=== PATIENT | male | born 1945 | race Caucasian/White ===

== ENCOUNTER 2018-05-30 00:49 | Inpatient (IN) | payer MEDICARE, OTHER ==
[2018-05-30] VITALS (12 sets, daily range): BP systolic 109–152; BP diastolic 61–108
[~2018-05-30] VITALS: Ht 177.8 cm; Wt 79.4 kg
[~2018-05-30 00:49] MED LIST: AMLO-113 PO; AMLO2.5T76 PO; ATOR20TA22 PO; CANA300T PO; CITA-137 PO; CITA-145 PO; GLIM4TAB50; GLIM4TAB50 PO; HYDR-2966 PO; HYDR-653 PO; HYDR12.556 PO; SILD100T59 PO; SITA1TAB17 PO; TRAM-420 PO; VALA500T66 PO
[2018-05-30] MEDS: NORMOSOL R SOLN(*) 1000 ML BAG 1,000 ML IV PRN ×2 (05:36→10:38)
[2018-05-30] MEDS: FAMOTIDINE 20 MG TAB PO ONE ×2 (05:36→10:38)
[2018-05-30] MEDS: LIDOCAINE/SOD BICARB 8.4% SYR ID ONE ×2 (05:37→10:38)
[2018-05-30] MEDS: ACETAMINOPHEN 500 MG TAB PO ONE ×2 (05:37→10:38)
[2018-05-30] MEDS ORDERED: DEXAMETHASONE SOD PHOS 10MG/ML ONE (06:20)
[2018-05-30] MEDS ORDERED: PROPOFOL(*)1000 MG/100 ML VIAL 100 ML ONE (06:26)
[2018-05-30] MEDS ORDERED: METOCLOPRAMIDE 10 MG/2 ML SDV ONE (10:40)
[2018-05-30] MEDS ORDERED: PROPOFOL EMUL(*) 10MG/ML 20 ML 20 ML ONE ×2 (10:40→14:37)
[2018-05-30] MEDS ORDERED: ONDANSETRON 4 MG/2 ML VIAL ONE (10:40)
[2018-05-30] MEDS ORDERED: LIDOCAINE MPF 1% 5 ML VIAL ONE (10:40)
[2018-05-30] MEDS ORDERED: fentaNYL CITR 250 MCG/5 ML AMP ONE (10:44)
[2018-05-30] MEDS ORDERED: ceFAZolin(*) 2GM/D5W 50ML 50 ML IVPB ONE (11:30)
[2018-05-30] MEDS ORDERED: MIDAZOLAM 2 MG/2 ML VIAL IVP PRN (11:30)
[2018-05-30] MEDS ORDERED: PREGABALIN 75 MG CAPSULE PO ONE (11:30)
[2018-05-30] MEDS ORDERED: ROPIVACAINE 0.2% 20 ML VIAL ONE (12:46)
[2018-05-30] MEDS ORDERED: THROMBIN (BOVINE) 20,000 UNIT VIAL ONE (12:46)
--- NOTE | 2018-05-30 15:55 | RADIOLOGY IMAGING REPORT ---
FACILITY: [facility] PATIENT NAME: Evelio Coy : 1945 MR: [id number] V: [id number] EXAM DATE: ORDERING PHYSICIAN: SELAM GIRON TECHNOLOGIST: Location: [facility] [place] Patient: Evelio Coy : 1945 Visit/Account:[id number] Date of Sevice: 05/30/2018 Technique: LUMBAR SPINE 1 VIEW HISTORY: L4-L5 DISC HERNIATION/FUSION Comparison studies: Lumbar spine radiographs June 18, 2014 FINDINGS: Multiple operative fluoroscopic images were obtained of the lumbar spine. Surgical instrum entation is seen posterior to L4-L5. Posterior spinal fusion hardware is then noted at L4-L5. Degen erative changes are visualized within the lumbar spine. Fluoroscopy time: Not provided IMPRESSION: 1. Intraoperative fluoroscopic radiographs as described above. Please see operative report for comp lete details. Report Dictated By: Lefty Salazar DO at 05/30/2018 3:49 PM Report E-Signed By: Lefty Salazar DO at 05/30/2018 3:50 PM WSN:[email or web address]
[2018-05-30] MEDS ORDERED: SUGAMMADEX SOD 200 MG/2 ML SDV ONE (16:15)
[2018-05-30] MEDS ORDERED: ROCURONIUM BROM 10 MG/ML 5 ML ONE (16:15)
[2018-05-30] MEDS ORDERED: fentaNYL CITR 100 MCG/2 ML AMP ONE ×2 (16:25→16:45)
[2018-05-30] MEDS ORDERED: DIAZEPAM 5 MG TAB PO PRN (16:40)
[2018-05-30] MEDS ORDERED: HYDROmorphone HCL 2 MG/ML SDV IVP PRN (16:40)
[2018-05-30] MEDS ORDERED: ONDANSETRON 4 MG/2 ML VIAL IVP PRN (16:40)
[2018-05-30] MEDS ORDERED: BENZOCAINE/MENTHOL 1 EACH LOZG PO PRN (16:40)
[2018-05-30] MEDS ORDERED: ACETAMINOPHEN(*)1000 MG/100 ML 100 ML IVPB PRN (16:40)
[2018-05-30] MEDS ORDERED: oxyCODONE HCL 5 MG CAP PO PRN (16:40)
[2018-05-30] MEDS ORDERED: BISACODYL 10 MG SUPP PR PRN (16:40)
[2018-05-30] MEDS ORDERED: MAGNESIUM HYDROXIDE* 30ML UDCP PO PRN (16:40)
[2018-05-30] MEDS ORDERED: LR(*) 1000 ML BAG 1,000 ML IV PRN (16:40)
[2018-05-30] MEDS ORDERED: FLUSH 10 ML SYR IVP PRN (16:40)
[2018-05-30] MEDS ORDERED: ACETAMINOPHEN 500 MG TAB PO PRN (16:40)
[2018-05-30] MEDS ORDERED: diphenhydrAMINE 25 MG CAP PO PRN (16:40)
[2018-05-30] MEDS ORDERED: HYDROmorphone HCL 2 MG/ML SDV ONE (17:06)
--- NOTE | 2018-05-30 19:31 | Hospitalist Progress Note ---
Subjective Progress Notes Subjective Patient seen post-operatively. Reviewed PMHx (HTN, type 2 DM, MAINOR) and medications. At present he complains of pain in surgical site. No CP/SOB/N/V. Physical Exam Vital Signs Date Time Temp Pulse Resp B/P (MAP) Pulse Ox O2 Delivery O2 Flow Rate FiO2 05/30/18 18:45 82 138/79 (98) 97 Nasal Cannula 2.0 05/30/18 18:30 20 05/30/18 18:05 98.2 General Appearance: Other (somewhat somnolent, but awakens and answers questions) Cardiovascular: Regular Rate and Rhythm Respiratory: Clear to Auscultation (poor effort) Assessment and Plan Problems: (1) HTN (hypertension) Status: Chronic Assessment & Plan: Will monitor BPs and resume his amlodipine, HCTZ as needed. (2) Type 2 diabetes mellitus Status: Chronic Assessment & Plan: Will continue his usual Invokana, Janumet, glimepiride. Place on ADA diet. Use SSI as needed. (3) MAINOR on CPAP Status: Chronic Assessment & Plan: Continue CPAP. JOSE ALEJANDRO JEWELL MD May 30, 2018 19:31
[2018-05-30] MEDS: APAP/HYDROCODONE 325/5 TAB PO PRN (19:56)
[2018-05-30] MEDS: GLIMEPIRIDE 2 MG TAB PO SCH (21:21)
[2018-05-30] MEDS: METFORMIN PO SCH (21:21)
[2018-05-30] MEDS: DOCUSATE SODIUM 100 MG CAP PO SCH (21:21)
[2018-05-30] MEDS: SITAGLIPTIN PO SCH (21:21)
[2018-05-30] MEDS: ceFAZolin(*) 2GM/D5W 50ML 50 ML IVPB SCH (21:22)
[2018-05-30] MEDS: INSULIN HUM LISPRO 100 UN/ML 3 ML VIAL SUBQ PRN (21:22)
[2018-05-31] VITALS: BP 109/67
[2018-05-31 01:00] VITALS: BP 109/65
[2018-05-31] MEDS: APAP/HYDROCODONE 325/5 TAB PO PRN ×2 (01:27→07:23)
--- NOTE | 2018-05-31 02:59 | OPERATIVE REPORT 1 ---
EVENT DATE: May 30, 2018 SURGEON: Lonny Ingram MD ANESTHESIOLOGIST: Lakhwinder Nix MD ANESTHESIA: General endotracheal anesthesia. HYPOID GEAR GENERATOR: Patrice Brown PA-C PREOPERATIVE DIAGNOSIS L4-L5 spinal stenosis with L4-L5 spondylolisthesis. POSTOPERATIVE DIAGNOSIS L4-L5 spinal stenosis with L4-L5 spondylolisthesis. PROCEDURE PERFORMED L4-L5 laminectomy and L4-L5 posterolateral instrumented fusion. INTRAVENOUS FLUIDS 1700 mL. ESTIMATED BLOOD LOSS 120 mL. IMPLANTS USED 6.5 mm x 45 mm pedicle screws from [employer] x3; 6.5 mm x 40 mm pedicle screw from [employer] x1; 5.5 mm x 45 mm connecting rods from [employer] x2, and locking caps from [employer] x4. DRAINS None. SPECIMENS None. COMPLICATIONS None. DISPOSITION Postanesthesia care unit. INDICATIONS FOR SURGERY Mr. Coy is a 73-year-old gentleman with a long history of back pain and severe radiating left posterior buttock, posterior thigh, posteromedial calf and medial foot numbness on the left. He failed physical therapy, medications, activity modifications, et cetera. Physical examination revealed normal strength but subjectively diminished sensation in sural and superficial peroneal nerve distributions on the left. Deep tendon reflexes were 1+ at bilateral patellar tendons and absent at bilateral Achilles tendons. Imaging studies showed a grade 1 spondylolisthesis at L4-L5 and multilevel degenerative disc disease with left greater than right lateral recess narrowing at the L4-L5 level and moderate to severe bilateral neural foraminal narrowing at that level as well. Secondary to ongoing symptoms and failure of nonsurgical care, Mr. Coy was offered and elected to undergo L4-L5 laminectomy and posterolateral instrumented fusion. Prior to surgery, I explained in detail to the patient the possible risks of surgery. These risks include bleeding, infection, damage to surrounding structures, spinal fluid leak, meningitis, nerve root injury, persistent and/or worsening pain, failure of instrumentation, need for further surgery, , blindness, sexual dysfunction, autonomic nervous system dysfunction, and other unforeseen medical and surgical complications. An understanding that in general, spinal surgery is more predictive in improving extremity discomfort than axial spine pain was stressed. DESCRIPTION OF PROCEDURE On the day of surgery, the patient was met in the preoperative hold area and all questions were answered. The operative site was identified and marked by myself. The patient was brought in good condition to the operating room, and after succumbing to anesthesia, he was positioned in the prone position on a Alex table. All bony protuberances and soft tissues were well padded in the standard fashion. Care was taken to maintain appropriate perfusion pressures during anesthesia. Preoperative antibiotics were administered according to the appropriate timing schedule. At the conclusion of the procedure, the sponge and needle counts were correct x2. Final time-out was undertaken by members of the operating team to confirm correct patient, correct levels, and correct surgery. The patient was then prepped and draped in the standard sterile orthopedic fashion. A vertical incision was made over the intended spinal levels, and sharp dissection was carried out down to the posterior elements. Soft tissues were elevated off the posterior elements in a subperiosteal manner, and a lateral radiograph was obtained to confirm correct spinal levels. Soft tissues were further elevated from the pars interarticularis and the transverse processes of the L4 and L5 vertebrae bilaterally. The lateral gutters were then packed with thrombin- soaked sponges. Attention was then turned to the laminectomy portion of the procedure. The spinous process of L4 as well as the inferior aspect of the spinous process of L3 and superior aspect of the spinous process of L5 were removed with a Leksell rongeur. The lamina was thinned down the midline with a Leksell rongeur and a high-speed bur. The canal was entered by undermining the superior insertion of the ligamentum flavum from the inferior aspect of the L4 lamina. A [place] elevator was used to separate dural adhesions from surrounding bone and soft tissue prior to the use of the Kerrison punch. A #4 Kerrison punch was then used to perform midline decompression. Bilateral lateral recess decompressions were performed also with a #4 and #4 Kerrison. At the conclusion of the decompression, the [place] elevator was passed along the lateral recesses to ensure no ongoing pressure of the traversing roots at L4-L5 and also at the foramina to ensure no foraminal compression. It was at this point that we recognized that the lamina on the left side was very loose. This included the inferior articular process of L4. Further dissection revealed a unilateral pars defect there that was not previously recognized at time of initial evaluation. We felt that this was explained the somewhat rotatory abnormality that we noted there at L4-L5, and also likely explained the slight anterolisthesis at that level. At this point we turned our attention to placing the pedicle screws. Starting points for pedicle screws were identified at approximately the intersection of the pars interarticularis, the midpoint of the transverse process, and the lateral aspect of the superior articular process/facet joint. A 5 mm high-speed bur was used to decorticate the overlying bone, and a Lenke-type probe was advanced against resistance through the isthmus of the pedicle. A ball-tip feeler was used to probe the screw tract superiorly, inferiorly, medially, laterally, and distally to ensure absence of bony breaching. We chose 6.5 mm x 45 mm screws for bilateral pedicles at L4 and the right pedicle at L5. On the left side at L5, a 40 mm screw was selected. Screws were placed in a standard fashion and tested with neurophysiologic monitoring, and all tested about 20 milliamps. Connecting rods of 45 mm were chosen and placed in the tulips. Locking caps were then placed and tightened and then finally tightened. A high- speed bur was used to decorticate the facet joint on the right side and the transverse processes bilaterally. Local bone mixed with demineralized bone matrix was then packed into the lateral recesses. Prior to placement of graft, the wound was irrigated with copious sterile saline solution. Final x-rays were obtained, which showed excellent positioning of the instrumentation. The wound was then closed in layers using interrupted sutures for the deep fascia, inverted interrupted sutures for the subcutaneous tissue, and then a running subcuticular skin stitch. Sponge and needle counts were correct x2. POSTOPERATIVE CARE PLAN Mr. Coy will remain in the hospital until he meets discharge criteria. He will follow up with me in approximately two weeks for wound check and examination. GEREMIAS
[2018-05-31 05:00] VITALS: BP 113/62
[2018-05-31] MEDS: ceFAZolin(*) 2GM/D5W 50ML 50 ML IVPB SCH (05:02)
--- NOTE | 2018-05-31 06:10 | Hospitalist Progress Note ---
Subjective Progress Notes Subjective He reports pain in surgical site, "but I am doing a lot better than I thought I would". Physical Exam Vital Signs Date Time Temp Pulse Resp B/P (MAP) Pulse Ox O2 Delivery O2 Flow Rate FiO2 05/31/18 05:00 99.1 14 113/62 (79) 94 Nasal Cannula 2.0 05/31/18 01:00 70 Intake and Output 05/31/18 06:59 Intake Total 2600 ml Output Total 1490 ml Balance 1110 ml Intake Oral 500 ml IV Total 2100 ml Output Urine Total 1490 ml General Appearance: Alert, Awake Cardiovascular: Regular Rate and Rhythm Respiratory: Clear to Auscultation Item Value Date Time Whole Blood Glucose 335 mg/DL H 05/30/18 2119 Whole Blood Glucose 163 mg/DL H 05/30/18 1610 Whole Blood Glucose 146 mg/DL H 05/30/18 1138 Assessment and Plan Problems: (1) HTN (hypertension) Status: Chronic Assessment & Plan: Monitor BPs and resume his amlodipine, HCTZ as needed. (2) Type 2 diabetes mellitus Status: Chronic Assessment & Plan: Continue his usual Invokana, Janumet, glimepiride, and ADA diet. Use SSI as needed. (3) MAINOR on CPAP Status: Chronic Assessment & Plan: Continue CPAP. Exam Sepsis Risk: No Definite Risk JOSE ALEJANDRO JEWELL MD May 31, 2018 06:10
[2018-05-31 07:04] VITALS: BP 127/80
[2018-05-31] MEDS: INSULIN HUM LISPRO 100 UN/ML 3 ML VIAL SUBQ PRN (07:18)
[2018-05-31] MEDS: METFORMIN PO SCH (08:16)
[2018-05-31] MEDS: SITAGLIPTIN PO SCH (08:16)
[2018-05-31] MEDS: GLIMEPIRIDE 2 MG TAB PO SCH (08:17)
[2018-05-31] MEDS: DOCUSATE SODIUM 100 MG CAP PO SCH (08:18)
[2018-05-31] MEDS ORDERED: CANAGLIFLOZIN 300 MG TABLET PO SCH (09:00)
[2018-05-31] MEDS ORDERED: amLODIPine BESYL(*) 5 MG TAB PO SCH (09:00)
[2018-05-31] MEDS ORDERED: valACYclovir HCL 500 MG TAB PO SCH ×2 (09:00→21:00)
[2018-05-31] MEDS ORDERED: HYDROCHLOROTHIAZIDE 25 MG TAB PO SCH (09:00)
[2018-05-31] MEDS ORDERED: CITALOPRAM HYDROBROM 20 MG TAB PO SCH (09:00)
[2018-05-31] MEDS ORDERED: ATORVASTATIN 10 MG TAB PO SCH (09:00)
[2018-05-31] MEDS ORDERED: HYDR-385 PO (09:16)
[2018-05-31] MEDS ORDERED: DOCU240C84 PO (09:17)
[2018-05-31] MEDS ORDERED: DIA5 PO (09:17)
--- NOTE | 2018-05-31 11:43 | RADIOLOGY IMAGING REPORT ---
FACILITY: PATIENT NAME: Evelio Coy : 1945 MR: [id number] V: [id number] EXAM DATE: ORDERING PHYSICIAN: SELAM GIRON TECHNOLOGIST: Location: [facility] Patient: Evelio Coy : 1945 Visit/Account:[id number] Date of Sevice: 05/31/2018 Exam type: LUMBAR SPINE 2 OR 3 VIEW History: Post-op Comparison: Intraoperative views lumbar spine May 30, 2018. Findings: There are postsurgical changes from posterior lumbar interbody fusion at L4-5. The vertebral bodies appear unchanged in alignment. Spondylotic changes throughout the remainder the lumbar spine again n oted. There are soft tissue gas in the dorsal soft tissues over the lower lumbar region consistent w ith recent surgery. There is a levoconvex scoliosis lumbar spine IMPRESSION: 1. Post surgical changes from posterior lumbar interbody fusion at L4-5 with vertebral bodies remain ing in good anatomic alignment Report Dictated By: Haven Stout MD at 05/31/2018 11:37 AM Report E-Signed By: Haven Stout MD at 05/31/2018 11:39 AM WSN:[email or web address]
== END 2018-05-31 10:20 | disposition home or self-care (01) | DRG 460 ==
LOC: OR 00:49 → MED 18:05
PROVIDERS: ADMIT Orthopaedic Surgery; ATTEND Orthopaedic Surgery
PROC: 01NB0ZZ Release Lumbar Nerve, Open Approach (ICD-10-PCS; 2018-05-30)
PROC: 0SG0071 Fusion of Lumbar Vertebral Joint with Autologous Tissue Substitute, Posterior Approach, Posterior Column, Open Approach (ICD-10-PCS; principal; 2018-05-30 13:12)
DX: M48.061 Spinal stenosis, lumbar region without neurogenic claudication (principal); M43.16 Spondylolisthesis, lumbar region; M51.16 Intervertebral disc disorders with radiculopathy, lumbar region; I10 Essential (primary) hypertension; E11.9 Type 2 diabetes mellitus without complications; G47.33 Obstructive sleep apnea (adult) (pediatric); F32.9 Major depressive disorder, single episode, unspecified; E03.9 Hypothyroidism, unspecified; Z87.891 Personal history of nicotine dependence; Z79.84 Long term (current) use of oral hypoglycemic drugs
CPT/HCPCS: 36415; 36416; 72020; 72100; 82948; 86850; 86900; 86901; 97161; C1713; J0690; J1100; J1170; J2001; J2250; J2405; J2704; J2765; J2795; J3010; J7120

== ENCOUNTER 2018-08-07 12:37 | Emergency (ER) | payer MEDICARE, OTHER ==
[~2018-08-07 12:37] MED LIST changes: +DIA5 PO; +DOCU240C84 PO; +HYDR-385 PO
[2018-08-07] MEDS ORDERED: ONDANSETRON 4 MG/2 ML VIAL IVP ONE (12:55)
[2018-08-07] MEDS ORDERED: ORPHENADRINE 60MG/2ML INJ IVP ONE (12:55)
[2018-08-07] MEDS ORDERED: fentaNYL CITR 100 MCG/2 ML AMP IVP ONE (12:55)
--- NOTE | 2018-08-07 12:56 | ER Report ---
History and Physical Time Seen By MD: 12:49 Hx. of Stated Complaint: RIGHT SHOULDER PAIN HPI/ROS CHIEF COMPLAINT: Right shoulder pain HISTORY OF PRESENT ILLNESS: This is a 73-year-old male presents to the emergency room for right shoulder pain. 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 Patient also states that last 1-2 days he's had increased pain in the right shoulder, he did purchase a cane yesterday, thinking this would help with the pain, it has increased the discomfort. He has taken two hydrocodone in the past several hours with no relief. The medication is for dental pain, he is scheduled to have dental work done tomorrow. No fevers or chills, no n/v. No chest pain or shortness of breath. REVIEW OF SYSTEMS: Respiratory: No cough, no dyspnea. Cardiovascular: No chest pain, no palpitations. Gastrointestinal: No vomiting, no abdominal pain. Musculoskeletal: As above. Allergies: Coded Allergies: No Known Drug Allergies (Unverified , 08/07/18) Home Meds Reported Medications Hydrocodone Bit/Acetaminophen (HYDROCODON-ACETAMINOPHEN 5-325) 1 Each Tablet, 1- 2 EACH PO Q6H PRN for PAIN, #12 TAB 05/31/18 Sildenafil Citrate (VIAGRA) 100 Mg Tablet, 0.5 TAB PO QDAY 05/26/18 Valacyclovir Hcl (VALTREX) 500 Mg Tablet, 500 MG PO DAILY for GENITAL HERPES 05/26/18 Atorvastatin Calcium (LIPITOR) 20 Mg Tablet, 1 TAB PO QDAY, TAB 05/26/18 Sitagliptin Phos/Metformin Hcl (JANUMET 50-1,000 MG TABLET) 1 Each Tablet, 1 EACH PO BID 05/26/18 Canagliflozin (INVOKANA) 300 Mg Tablet, 300 MG PO DAILY 05/26/18 Hydrochlorothiazide (HYDROCHLOROTHIAZIDE) 25 Mg Tablet, 1 TAB PO QDAY, TAB 05/26/18 Glimepiride (GLIMEPIRIDE) 4 Mg Tablet, 4 MG PO BID 05/26/18 Citalopram Hydrobromide (CITALOPRAM HBR) 20 Mg Tablet, 40 MG PO QDAY, #5 TAB 05/26/18 Amlodipine Besylate (AMLODIPINE BESYLATE) 10 Mg Tablet, 1 TAB PO QDAY, TAB 05/26/18 Discontinued Reported Medications Diazepam (VALIUM) 5 Mg Tablet, 5 MG PO Q8H PRN for SPASMS, #15 TAB 05/31/18 Docusate Calcium (SURFAK) 240 Mg Capsule, 240 MG PO DAILY, CAPSULE 05/31/18 Tramadol Hcl (TRAMADOL HCL) 50 Mg Tablet, 50-100 MG PO Q4-6H PRN for PAIN, TAB 05/26/18 Past Medical/Surgical History The patient has a past medical and surgical history of hypertension, hypercholesterolemia, laminectomy, fusion, brittny and screw wounds, bone grafts, significant amount of dental work, crowns, wears glasses, hard or hearing, type II diabetes, depression, skin cancer, anal hernia repair, colon resection, colon cancer, bladder stones, cystoscopy, right Achilles tendon, wrist surgery. Reviewed Nurses Notes: Yes Hx Smoking: Yes (SMOKED 1PPD X 10 YRS. QUIT 1975.) Hx Alcohol Use: Yes Constitutional Vital Sign - Last 24 Hours 08/07/18 08/07/18 08/07/18 08/07/18 12:37 12:45 12:53 13:07 Pulse 89 77 75 Resp 16 B/P (MAP) 183/97 (125) 183/97 Pulse Ox 99 97 99 O2 Delivery Room Air 08/07/18 08/07/18 08/07/18 08/07/18 13:37 13:44 14:00 14:07 Pulse 78 71 B/P (MAP) 172/99 (123) 161/87 (111) Pulse Ox 98 95 08/07/18 08/07/18 08/07/18 08/07/18 14:12 14:30 14:42 15:00 Pulse ??? 79 B/P (MAP) 177/102 (127) 151/94 (113) Pulse Ox 100 08/07/18 08/07/18 08/07/18 15:12 15:30 15:42 Pulse 68 92 B/P (MAP) 159/86 (110) Pulse Ox 91 93 Physical Exam General Appearance: The patient is alert, has no immediate need for airway protection and no current signs of toxicity, anxious. Eyes: Pupils equal and round no injection. Respiratory: Chest is non tender, lungs are clear to auscultation. Cardiac: regular rate and rhythm. Gastrointestinal: Abdomen is soft and non tender, no masses, bowel sounds normal. Musculoskeletal: Neck: Neck is supple and non tender. Extremities right shoulder discomfort with palpation, there is an area of swelling and deformity to the anterior surface of the right shoulder. CMS intact distal to the injury. Skin: No rashes or lesions. DIFFERENTIAL DIAGNOSIS: After history and physical exam differential diagnosis was considered for impingement syndrome, dislocation, good motion injury, arthritis, bursitis and gout. Medical Decision Making EKG/Imaging Imaging Location: [facility] Patient: Evelio Coy : 1945 Visit/Account:[id number] Date of Sevice: 08/07/2018 EXAMINATION: Right shoulder, 4 views 08/07/2018 2:48 PM HISTORY: post reduction COMPARISON: Prereduction imaging today FINDINGS: Right glenohumeral dislocation has been reduced. Hill-Sachs impaction into the humeral head is present. No clear Bankart bony glenoid fracture. Mild spurring in the AC joint. IMPRESSION: Anatomic reduction of the right glenohumeral dislocation. There is a Hill-Sachs humeral head fracture but no clear bony Bankart injury. Report Dictated By: Blue Ortiz MD at 08/07/2018 3:57 PM Report E-Signed By: Blue Ortiz MD at 08/07/2018 3:59 PM WSN:[id number] Location: [facility] Patient: Evelio Coy : 1945 Visit/Account:[id number] Date of Sevice: 08/07/2018 SHOULDER MIN 2 VIEWS RIGHT Indication: Right shoulder pain. Comparison: Unavailable Findings: Three views of the right shoulder. There is inferior subluxation of the humeral head without lalita dislocation however no axillary view is present. AC joint is intact. No indication of acute fracture. No bony lesion. No appreciable degenerative changes. Mild flattening of the lateral humeral head. Soft tissues are unremarkable. IMPRESSION: 1. Inferior subluxation of the humeral head without lalita dislocation on these images. No indication of acute fracture. There is mild flattening of the lateral humeral head which could be from a previous Hill-Sachs deformity. Report Dictated By: David Gonzales at 08/07/2018 2:15 PM Report E-Signed By: David Gonzales at 08/07/2018 2:18 PM WSN:[email or web address] ED Course/Re-evaluation Clinical Indication for ER IV: Hydration, IV Access ED Course The patient was admitted to room. A history and physical were obtained. Differential diagnoses were considered. An IV was started. 4 mg IV Zofran, 50 g IV fentanyl were given. Patient did not have much relief with the fentanyl, was given 0.5 mg IV Dilaudid which did seem to help with some his discomfort. There was a slight deformity of the right upper extremity however the patient did not recall falling, I did quiz him extensively about out call consumption and potentially falling down however he declined drinking large quantities of alcohol recently and no recent falls. After further investigation he states that he did wake with his right arm above his head with notable shoulder pain as he moves his arm down he developed intense pain in the right shoulder. An x-ray of the right shoulder showing Inferior subluxation of the humeral head without lalita dislocation. I did discuss this with the patient, decided to proceed with procedural sedation for shoulder dislocation, as the patient was being prepped for reduction the shoulder did reduce on its own. A postreduction film does show a positive reduction of the right shoulder. The patient was placed in a sling. He was instructed to take ibuprofen or Tylenol as needed for pain. Follow-up with [facility] this week for reevaluation. Patient exposed understanding was discharged home. Decision to Disposition Date: Aug 07, 2018 Decision to Disposition Time: 16:17 Depart Departure Latest Vital Signs Vital Signs Date Time Temp Pulse Resp B/P (MAP) Pulse Ox O2 Delivery O2 Flow Rate FiO2 08/07/18 15:42 92 93 08/07/18 15:30 159/86 (110) 08/07/18 12:53 16 Room Air Impression: Primary Impression: Dislocation of shoulder, right, closed Condition: Improved Disposition: HOME OR SELF-CARE Referrals: SELAM CANDELARIO DO (PCP) NAOMI MORGAN MD 5 Days Patient Instructions: Shoulder Dislocation (ED) Additional Instructions: Keep the sling on for comfort. Please follow up with [facility] this week for reevaluation of your right shoulder. I do not see any reason we would not be able to follow-up with your dentist for the dental work tomorrow. Take ibuprofen or Tylenol as needed for the shoulder pain. Please do your best to avoid lifting your right arm above her head. Return to the emergency department for any other concerns or worsening symptoms. Problem Qualifiers Primary Impression: Dislocation of shoulder, right, closed Encounter type: initial encounter Qualified Codes: S43.004A - Unspecified dislocation of right shoulder joint, initial encounter CHRIS CAMARENA BANDAGE WRAPPING MACHINE OPERATOR-BC Aug 07, 2018 12:56
[2018-08-07] MEDS ORDERED: HYDROMORPHONE HCL 1 MG/ML SYRINGE IVP ONE (13:40)
[2018-08-07] MEDS ORDERED: KETAMINE HCL 200 MG/20 ML MDV IVP ONE (14:20)
[2018-08-07] MEDS ORDERED: PROPOFOL EMUL 10MG/ML 20 ML VL IV ONE (14:20)
--- NOTE | 2018-08-07 14:22 | RADIOLOGY IMAGING REPORT ---
[place] [facility] [place] NAME: Evelio Coy : 1945 MR: [id number] V: [id number] EXAM DATE: ORDERING PHYSICIAN: CHRIS CAMARENA TECHNOLOGIST: Location: [facility] Patient: Evelio Coy : 1945 Visit/Account:[id number] Date of Sevice: 08/07/2018 SHOULDER MIN 2 VIEWS RIGHT Indication: Right shoulder pain. Comparison: Unavailable Findings: Three views of the right shoulder. There is inferior subluxation of the humeral head without lalita dislocation however no axillary view is present. AC joint is intact. No indication of acute fracture. No bony lesion. No appreciable d egenerative changes. Mild flattening of the lateral humeral head. Soft tissues are unremarkable. IMPRESSION: 1. Inferior subluxation of the humeral head without lalita dislocation on these images. No indicatio n of acute fracture. There is mild flattening of the lateral humeral head which could be from a prev ious Hill-Sachs deformity. Report Dictated By: David Gonzales at 08/07/2018 2:15 PM Report E-Signed By: David Gonzales at 08/07/2018 2:18 PM WSN:[email or web address]
[2018-08-07] MEDS ORDERED: KETAMINE HCL 500 MG/5 ML VIAL ONE (14:28)
[2018-08-07 15:30] VITALS: BP 159/86
--- NOTE | 2018-08-07 16:03 | RADIOLOGY IMAGING REPORT ---
FACILITY: [facility] PATIENT NAME: Evelio Coy : 1945 MR: [id number] V: [id number] EXAM DATE: ORDERING PHYSICIAN: CHRIS CAMARENA TECHNOLOGIST: Location: [facility] [place] Patient: Evelio Coy : 1945 Visit/Account:[id number] Date of Sevice: 08/07/2018 EXAMINATION: Right shoulder, 4 views 08/07/2018 2:48 PM HISTORY: post reduction COMPARISON: Prereduction imaging today FINDINGS: Right glenohumeral dislocation has been reduced. Hill-Sachs impaction into the humeral hea d is present. No clear Bankart bony glenoid fracture. Mild spurring in the AC joint. IMPRESSION: Anatomic reduction of the right glenohumeral dislocation. There is a Hill-Sachs humeral h ead fracture but no clear bony Bankart injury. Report Dictated By: Blue Ortiz MD at 08/07/2018 3:57 PM Report E-Signed By: Blue Ortiz MD at 08/07/2018 3:59 PM WSN:[id number]
== END 2018-08-07 16:31 | disposition home or self-care (01) ==
LOC: ER 12:49
DX: S43.004A Unspecified dislocation of right shoulder joint, initial encounter (principal)
CPT/HCPCS: 73030; 96374; 96375; 99284; A4565; J1170; J2360; J2405; J3010